=== PATIENT | female | born 1995 | race Caucasian/White ===

== ENCOUNTER → 2016-05-07 | Outpatient (CLI) | payer OTHER ==
[2016-05-07 17:41] LABS: BASO % 0.2 % (0.0-1.0); EOS % 0.6 % (0.0-3.0); LARGE UNSTAINED CELL # 0.1 K/mm3 (0.0-0.4); LARGE UNSTAINED CELL % 0.8 % (0.0-4.0); LYMPH % 11.1 % (24.0-44.0); MEAN CORPUSCULAR HEMOGLOBIN 30.3 pg (27.0-33.0); MEAN CORPUSCULAR HGB CONC 35.4 g/dl (32.0-36.5); MEAN CORPUSCULAR VOLUME 85.6 fl (80.0-96.0); MONO # 0.3 K/mm3 (0.0-0.8); MONO % 2.9 % (0.0-5.0); NEUTROPHILS # 7.7 K/mm3 (1.8-7.7); NEUTROPHILS % 84.4 % (36.0-66.0); PLATELET COUNT, AUTOMATED 207 k/mm3 (150-450); RED CELL DISTRIBUTION WIDTH 13.7 % (11.5-14.5); WHITE BLOOD COUNT 9.1 K/mm3 (4.0-10.0)
[2016-05-08 09:20] LABS: HBsAg Prenatal NEGATIVE (NEGATIVE)
[2016-05-08 09:36] LABS: CONTROL LINE INT CTR LINE PRESENT; HIV SCRN NEGATIVE (NEGATIVE); HIV SCRN1 NEGATIVE (NEGATIVE)
== END ==
LOC: M SMT 13:13
PROVIDERS: ATTEND Obstetrics & Gynecology
DX: Z34.81 Encounter for supervision of other normal pregnancy, first trimester (principal)

== ENCOUNTER → 2016-05-27 | Outpatient (CLI) | payer OTHER ==
--- NOTE | 2016-05-28 03:43 | REP ---
Clinical: Anatomical evaluation. Comparison: 02/18/2016 . Findings: Examination demonstrates a single live intrauterine in breech presentation. motion is identified by technologist. Placenta is noted anteriorly and grade zero without evidence for placenta previa or abruption. Amniotic fluid volume is normal. Cervix measures 3.4 cm in length and appears closed. No evidence for nuchal cord. Gestational age by LMP 20 weeks 3 days with MANN 10/11/2016 . Gestational age by current measurements 21 weeks 4 days with MANN 10/03/2016 . FHR equals 144 beats per minute. BPD 5.2 cm 21 weeks 5 days HC 18.9 cm 21 weeks 1 day AC 17.5 cm 22 weeks 3 days FL 3.8 cm 22 weeks 2 days HL 3.7 cm 22 weeks 6 days HC/AC ratio 1.08 Estimated weight 448 grams ( 66th percentile). Anatomical assessment demonstrates normal structures including cranium, choroid plexus, cavum, cerebellum/posterior fossa, facial features, lungs, four-chamber heart/ventricular outflow tracts, diaphragm, stomach, cord insertion/three-vessel cord, bladder, spine, and extremities. Renal pelvises measuring 1.6 mm suggesting mild pelviectasis. Impression: Single live intrauterine in breech presentation. Mild renal pelviectasis. Anatomical assessment is otherwise complete and normal. Signed by Jorge L Em MD 05/28/2016 03:35 A
== END ==
LOC: M SMT 14:52
PROVIDERS: ATTEND Obstetrics & Gynecology
DX: Z34.81 Encounter for supervision of other normal pregnancy, first trimester (principal)

== ENCOUNTER → 2016-07-03 | Outpatient (CLI) | payer OTHER ==
[2016-07-03 18:25] LABS: BASO % 0.4 % (0.0-1.0); EOS # 0.2 K/mm3 (0.0-0.50); EOS % 2.1 % (0.0-3.0); LARGE UNSTAINED CELL # 0.1 K/mm3 (0.0-0.4); LARGE UNSTAINED CELL % 0.8 % (0.0-4.0); LYMPH # 1.2 K/mm3 (1.5-6.5); LYMPH % 11.6 % (24.0-44.0); MEAN CORPUSCULAR HEMOGLOBIN 28.2 pg (27.0-33.0); MEAN CORPUSCULAR HGB CONC 32.8 g/dl (32.0-36.5); MEAN CORPUSCULAR VOLUME 85.9 fl (80.0-96.0); MONO # 0.4 K/mm3 (0.0-0.8); MONO % 4.2 % (0.0-5.0); NEUTROPHILS # 8.1 K/mm3 (1.8-7.7); NEUTROPHILS % 80.9 % (36.0-66.0); PLATELET COUNT, AUTOMATED 234 k/mm3 (150-450); RED CELL DISTRIBUTION WIDTH 13.9 % (11.5-14.5)
== END ==
LOC: M SMT 13:18
PROVIDERS: ATTEND Obstetrics & Gynecology
DX: Z34.83 Encounter for supervision of other normal pregnancy, third trimester (principal)

== ENCOUNTER → 2016-09-12 | Outpatient (REF) | payer OTHER | LOC: M LAB REF 16:56 | PROVIDERS: ATTEND Obstetrics & Gynecology | DX: Z34.83 Encounter for supervision of other normal pregnancy, third trimester (principal) ==

== ENCOUNTER → 2016-09-19 | Outpatient (CLI) | payer OTHER ==
--- NOTE | 2016-09-19 13:53 | REP ---
Clinical: Growth evaluation. Comparison: 05/27/2016 . Findings: Examination demonstrates a single live intrauterine in cephalic presentation. motion is identified by technologist. Placenta is noted posterior right laterally and grade III without evidence for placenta previa or abruption. Amniotic fluid volume is normal. No evidence for nuchal cord. Gestational age by LMP 36 weeks 6 days with MANN 10/11/2016 . Gestational age by first US 38 weeks 0 days with MANN 10/03/2016 Gestational age by current measurements 37 weeks 0 days with MANN 10/10/2016 . FHR equals 150 beats per minute. BPD 9.0 cm 36 weeks 3 days HC 32.0 cm 36 weeks 0 days AC 34.1 cm 38 weeks 0 days FL 7.4 cm 37 weeks 5 days HL 6.4 cm 37 weeks 1 day HC/AC ratio 0.94 Estimated weight 3230 grams (49th percentile). Amniotic fluid index equals 18.2 cm. Impression: Single live intrauterine in cephalic presentation demonstrating appropriate interval growth. No gross abnormalities are identified. Signed by Jorge L Em MD 09/19/2016 01:45 P
== END ==
LOC: M RAD 12:46
PROVIDERS: ATTEND Obstetrics & Gynecology
DX: O26.843 Uterine size-date discrepancy, third trimester (principal); Z3A.37 37 weeks gestation of pregnancy

== ENCOUNTER 2016-09-25 10:15 | Inpatient (IN) | payer OTHER ==
[~2016-09-25] VITALS: Ht 165.1 cm; Wt 66.0 kg
[2016-09-25] VITALS (11 sets, daily range): BP systolic 118–146; BP diastolic 63–89
[~2016-09-25 10:15] MED LIST: MEASLES,MUMPS,RUBELLA VACCINE INJ (MMR-II) (90707) SC SCH; RHOGAM 300 MCG (1500 IU) INJ (J2790) IM SCH
[2016-09-25] MEDS ORDERED: LACTATED RINGER'S 1000 ML IV STA (10:17)
[2016-09-25 11:10] LABS: MEAN CORPUSCULAR HEMOGLOBIN 23.7 pg (27.0-33.0); MEAN CORPUSCULAR HGB CONC 32.6 g/dl (32.0-36.5); MEAN CORPUSCULAR VOLUME 72.9 fl (80.0-96.0); RED CELL DISTRIBUTION WIDTH 15.6 % (11.5-14.5); WHITE BLOOD COUNT 9.8 K/mm3 (4.0-10.0)
--- NOTE | 2016-09-25 13:05 | HPE ---
DATE OF ADMISSION: 09/25/2016 Soledad is a 21-year-old 1, para 0 at 37-6/7 weeks gestation with an estimated date of confinement (EDC) of 10/10/2016 based on last menstrual period and confirmed by first trimester ultrasound. She presents to labor and delivery today with report of onset of contractions at around midnight that have progressively become more uncomfortable. She reports the contractions at about five minutes apart. She denies vaginal bleeding and leakage of fluid and the fetus has been active. care initiated at [facility] in the first trimester. 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 OBSTETRICAL HISTORY: Primigravida. OBSTETRICAL LABORATORY DATA: Blood type is B+, antibody screen negative, rubella immune, VDRL nonreactive. Hepatitis B surface antigen negative. HIV negative. Hepatitis C antibody nonreactive. Gonorrhea and Chlamydia negative. Gestational diabetic screening 97. Her GBS was negative. PAST MEDICAL HISTORY: Noncontributory. PAST SURGICAL HISTORY: [place] teeth. FAMILY HISTORY: Asthma, autism, Down syndrome. SOCIAL HISTORY: The patient is single. However, the is at bedside and supportive. She is a nonsmoker. Denies alcohol and drug use. Denies history of sexually transmitted infections and denies history of abuse, physical, sexual and emotional. ALLERGIES: No known drug allergies. CURRENT MEDICATIONS: - Zofran 4 mg as needed - vitamins OBJECTIVE: Temperature 98.3, pulse 86, respirations 18, blood pressure 131/89. She is alert and oriented times three. She is tearful with contractions. heart rate upon arrival to labor and delivery 140 with moderate variability, positive accelerations and positive early decelerations. Contractions about every 4-6 minutes. Sterile vaginal examination performed in the office, 6 cm dilated, 90% effaced, -1 station with a bulging bag of water and scant bloody show. Abdomen is gravid, cephalic presentation. Estimated weight 7 pounds. ASSESSMENT: Intrauterine at 38-1/7 weeks, heart rate category 1 , active labor. PLAN: Admit the patient to labor and delivery. Out of bed ad kady. Laboratories as ordered. The patient desires to cope with her labor physiologically. Her mother is driving from out of town and will be here in approximately two hours' time. At that time, I will consider artificial rupture of membranes (AROM) to augment her labor. I do anticipate continued labor progress and a spontaneous vaginal delivery. [facility]
[2016-09-25] MEDS ORDERED: OXYTOCIN 30 UNITS IN 0.9% NaCl 500ML IV BAG (J2590) As Ordered ONE (13:36)
[2016-09-25] MEDS ORDERED: OXYTOCIN DRIP 30 UNITS in APPROPRIATE DILUENT 1 EA IV SCH (14:14)
[2016-09-25] MEDS ORDERED: ACETAMINOPHEN 500 MG TAB PO PRN (14:15)
[2016-09-25] MEDS ORDERED: DIBUCAINE 1% OINTMENT 30GM TOP PRN (14:15)
[2016-09-25] MEDS ORDERED: LIDOCAINE 1% MDV INJ 50 ML VIAL INFIL ONE (14:15)
[2016-09-25] MEDS ORDERED: METHYLERGONOVINE MALEATE 0.2 MG TAB PO PRN (14:15)
--- NOTE | 2016-09-25 14:20 | DN ---
DATE: 09/25/2016 Soledad is a 21-year-old 1, para 1-0-0-1 now, who was admitted to labor and delivery in active labor. She coped with her labor with position changes and hydrotherapy. She had spontaneous rupture of membranes at 1315. She reached full dilation at 1337. She pushed to a normal spontaneous vaginal delivery of a live male in occiput anterior (OA) position with restitution to right occiput transverse (ROT) position at 1344. There was no nuchal cord. The shoulders delivered with gentle downward guidance and the corpus immediately followed. The was placed on maternal abdomen crying and active. His mouth and nares were bulb suctioned. The cord was clamped times two once pulsations ceased and cut by the father of the baby. A spontaneous expulsion of an intact placenta with three-vessel cord by Small mechanism was at 1350. Uterine hemostasis achieved with uterine fundal massage and IV Pitocin rapid infusion. Estimated blood loss 300 mL. Upon further inspection of the placenta, it was noted to be intact with a velamentous cord insertion. Perineum and vagina were inspected and noted to have a first-degree midline laceration. The laceration was infiltrated with 1% lidocaine and repaired with 3-0 Rapide in the usual fashion. Estimated blood loss 300 mL. male weighed 6 pounds, 10 ounces, 3008 grams, scores 9 and 9. Mother is going to breastfeed her son and the family have named him Chucho. At the close of delivery, lap counts, needle counts and instrument counts were correct and verified.
[2016-09-25] MEDS: IBUPROFEN 800 MG TAB PO PRN (20:58)
[2016-09-25] MEDS ORDERED: DOCUSATE SODIUM 100 MG CAP PO PRN (21:00)
[2016-09-25] MEDS: PRENATAL VITAMIN TAB PO SCH (21:44)
[2016-09-26 05:49] VITALS: BP 116/73
[2016-09-26] MEDS: PRENATAL VITAMIN TAB PO SCH (07:54)
[2016-09-26] MEDS: IBUPROFEN 800 MG TAB PO PRN ×2 (07:55→17:59)
[2016-09-26 18:30] VITALS: BP 128/81
[2016-09-27] MEDS: IBUPROFEN 800 MG TAB PO PRN (01:35)
[2016-09-27 06:15] VITALS: BP 110/69
[2016-09-27] MEDS ORDERED: IBUP-1114 PO (07:54)
[2016-09-27] MEDS ORDERED: ACET50TA PO (07:54)
[2016-09-27] MEDS: PRENATAL VITAMIN TAB PO SCH (08:56)
[2016-09-27] MEDS ORDERED: ADACEL/BOOSTRIX VACCINE (DIPHTH/PERTUSS/ACELL/TETANUS)0.5ML SYR (90715) IM ONE (09:00)
== END 2016-09-27 11:40 | disposition home or self-care (01) | DRG 775 ==
LOC: M LDI 10:15 → M OBS 16:21
PROVIDERS: ADMIT Advanced Practice Midwife; ATTEND Advanced Practice Midwife
PROC: 10E0XZZ Delivery of Products of Conception, External Approach (ICD-10-PCS; principal; 2016-09-25)
PROC: 0HQ9XZZ Repair Perineum Skin, External Approach (ICD-10-PCS; 2016-09-25)
DX: O34.03 Maternal care for unspecified congenital malformation of uterus, third trimester (principal); Z37.0 Single live birth; Z3A.37 37 weeks gestation of pregnancy; Q51.3 Bicornate uterus; Z83.6 Family history of other diseases of the respiratory system; Z82.79 Family history of other congenital malformations, deformations and chromosomal abnormalities; Z79.899 Other long term (current) drug therapy; O43.123 Velamentous insertion of umbilical cord, third trimester; O70.0 First degree perineal laceration during delivery

== ENCOUNTER → 2016-10-21 | Outpatient (CLI) | payer OTHER ==
[~2016-10-21] MED LIST changes: +ACET50TA PO; +IBUP-1114 PO; -MEASLES,MUMPS,RUBELLA VACCINE INJ (MMR-II) (90707) SC SCH; -RHOGAM 300 MCG (1500 IU) INJ (J2790) IM SCH
[2016-10-21 18:37] LABS: BASO % 0.6 % (0.0-1.0); EOS # 0.2 K/mm3 (0.0-0.50); EOS % 4.5 % (0.0-3.0); LARGE UNSTAINED CELL # 0.1 K/mm3 (0.0-0.4); LARGE UNSTAINED CELL % 1.2 % (0.0-4.0); LYMPH # 1.2 K/mm3 (1.5-6.5); MEAN CORPUSCULAR HEMOGLOBIN 23.4 pg (27.0-33.0); MEAN CORPUSCULAR HGB CONC 30.9 g/dl (32.0-36.5); MEAN CORPUSCULAR VOLUME 75.7 fl (80.0-96.0); MONO # 0.3 K/mm3 (0.0-0.8); MONO % 5.6 % (0.0-5.0); NEUTROPHILS # 3.4 K/mm3 (1.8-7.7); NEUTROPHILS % 66.2 % (36.0-66.0); PLATELET COUNT, AUTOMATED 210 k/mm3 (150-450); RED CELL DISTRIBUTION WIDTH 17.6 % (11.5-14.5); WHITE BLOOD COUNT 5.2 K/mm3 (4.0-10.0)
[2016-10-21 19:09] LABS: ALBUMIN 3.5 GM/DL (3.2-5.2); ALKALINE PHOSPHATASE 80 U/L (45-117); ALT/SGPT 46 U/L (12-78); ANION GAP 5 MEQ/L (8-16); AST/SGOT 33 U/L (15-37); BILIRUBIN,TOTAL 0.4 MG/DL (0.2-1.0); BLOOD UREA NITROGEN 14 MG/DL (7-18); CALCIUM LEVEL 9.2 MG/DL (8.5-10.1); CARBON DIOXIDE LEVEL 28 MEQ/L (21-32); CHLORIDE LEVEL 109 MEQ/L (98-107); CREATININE FOR GFR 0.73 MG/DL (0.55-1.02); GLOMERULAR FILTRATION RATE > 60.0 (>60); GLUCOSE, FASTING 72 MG/DL (70-105); POTASSIUM SERUM 4.4 MEQ/L (3.5-5.1); SODIUM LEVEL 142 MEQ/L (136-145)
== END ==
LOC: M SMT 14:32
PROVIDERS: ATTEND Physician Assistant Medical
DX: Z13.0 Encounter for screening for diseases of the blood and blood-forming organs and certain disorders involving the immune mechanism (principal); Z13.29 Encounter for screening for other suspected endocrine disorder